=== PATIENT | female | born 1975 | race Hispanic/Latino ===

== ENCOUNTER 2023-05-03 15:25 | Outpatient (CLI) | payer BC | END 2023-05-03 15:26 | disposition home or self-care (01) | LOC: CSHMAMMO 15:25 | PROVIDERS: ATTEND Family Medicine | DX: Z12.31 Encounter for screening mammogram for malignant neoplasm of breast (principal) | CPT/HCPCS: 77063; 77067 ==

== ENCOUNTER 2023-09-21 08:19 | Outpatient (CLI) | payer BC | END 2023-09-21 08:20 | disposition home or self-care (01) | LOC: CSHULT 08:19 | PROVIDERS: ATTEND Family Medicine | DX: R10.12 Left upper quadrant pain (principal) | CPT/HCPCS: 76700 ==